=== PATIENT | female | born 1980 | race Caucasian/White ===

== ENCOUNTER 2018-01-10 13:35 | Outpatient (CLI) | END 2018-01-10 15:35 | disposition home or self-care (01) ==

== ENCOUNTER 2018-04-06 17:44 | Inpatient (IN) | END 2018-04-09 15:11 | disposition home or self-care (01) | DRG 766 ==

== ENCOUNTER 2018-05-24 02:38 | Inpatient (IN) | END 2018-05-27 16:20 | disposition home or self-care (01) | DRG 854 ==

== ENCOUNTER 2019-07-07 11:57 | Outpatient (CLI) | payer MEDICAID ==
[~2019-07-07] VITALS: Ht 154.9 cm; Wt 87.6 kg
[~2019-07-07 11:57] MED LIST: DOCU-144 PO; HYDR-4011 PO; NPH,100V SQ; PREN-93 PO
[2019-07-07 12:23] VITALS: BP 119/65; PULSE 93; RESP 18; Ht 154.9 cm; Wt 87.6 kg
== END 2019-07-07 14:21 | disposition home or self-care (01) ==
LOC: OBT 11:57 → L-D 11:57 → OBT 14:21
PROVIDERS: ATTEND Obstetrics & Gynecology
DX: O40.3XX0 Polyhydramnios, third trimester, not applicable or unspecified (principal); O24.414 Gestational diabetes mellitus in pregnancy, insulin controlled; O09.523 Supervision of elderly multigravida, third trimester; Z3A.35 35 weeks gestation of pregnancy
CPT/HCPCS: 76818; Z7500; G0463